=== PATIENT | male | born 1945 | race Caucasian/White ===

== ENCOUNTER 2017-11-08 07:30 | Inpatient (IN) ==
[~2017-11-08 07:30] MED LIST: ACETAMINOPHEN 500 MG TABLET PO ONE; DEXAMETHASONE 4 MG/ML INJECTION IVP ONE; FAMOTIDINE PB 20 MG/50 ML BAG IV ONE; MELOXICAM 15 MG TABLET PO ONE; METOCLOPRAMIDE 10mg/2ml INJECTION IVP ONE; ONDANSETRON 4 MG/2 ML INJECTION IVP ONE; TRANEXAMIC ACID 1,000 MG in NS 100 ML IV ONE
[2017-11-08] MEDS ORDERED: EPINEPHrine PF 0.25 MG, BUPIVACAINE 0.25% PF 30 ML, KETOROLAC INJ 60 MG in NS 30 ML OPSITE ONE (08:00)
[2017-11-08] MEDS ORDERED: LIDOCAINE 1% (10mg/ml) 2mL INJ PF SDV ID ONE (08:01)
[2017-11-08] MEDS ORDERED: CEFAZOLIN 1 G INJECTION IVP ONE (08:01)
[2017-11-08 08:15] VITALS: BMI 25.4
[2017-11-08] MEDS: LR 1,000 ML IV SCH ×2 (08:42→10:51)
[2017-11-08] MEDS: NOZIN NASAL SWAB NAS SCH ×6 (08:45→21:15)
[2017-11-08] MEDS ORDERED: SALINE FLUSH 10ml SYRINGE IV PRN (09:16)
[2017-11-08] MEDS ORDERED: SCOPOLAMINE 1mg/3 days PATCH (Eq. 1.5 Patch) TD ONE (09:45)
--- NOTE | 2017-11-08 09:45 | Anesthesia Preoperative Report ---
Anesthesia Preoperative Record - Date and Time Date: 11/08/17 Preoperative Diagnosis: RT STEFFI M16.11 Proposed Procedure: Right Total Hip NPO Since Date: 11/08/17 NPO Since Time: 00:00 Allergies/Adverse Reactions: Allergies Allergy/AdvReac Type Severity Reaction Status Date / Time No Known Drug Allergies Allergy Unknown Verified 11/08/17 08:27 atorvastatin [From Lipitor] AdvReac Intermediate severe Verified 11/08/17 08:28 muscle aches hydrocodone AdvReac Intermediate severe Verified 11/08/17 08:28 depression simvastatin AdvReac Intermediate severe Verified 11/08/17 08:28 muscle aches - Vital Signs Vital Signs: Temperature 97.9 F 11/08/17 08:13 Pulse Rate 67 11/08/17 08:34 Respiratory Rate 15 11/08/17 08:13 Blood Pressure 172/88 H 11/08/17 08:13 Pulse Oximetry 96 11/08/17 08:13 Height and Weight: Height 6 ft Weight 85.3 kg Body Mass Index 25.4 - Medications Inpatient Medications: Current Medications Lactated Ringer's (Lactated Ringers) 1,000 mls @ 50 mls/hr IV .Q20H OLGA Last Admin: 11/08/17 08:42 Dose: 50 mls/hr Sodium Chloride (Iv Flush) 10 - 80 ml IV PRN PRN PRN Reason: Flushing Home Medications: Home Medications Medication Instructions Recorded Confirmed Type Ibuprofen 200 - 600 mg PO Q6HPRN PRN 10/24/17 11/08/17 History Pravastatin [Pravachol] 1 tab PO DAILY 11/02/17 11/08/17 History Docusate Sodium [Colace Clear] 1 cap PO BID 11/08/17 11/08/17 History Ergocalciferol (Vitamin D2) 1 cap PO O 11/08/17 11/08/17 History [Vitamin D2] Is Patient on Beta Rj?: No - Medical History Respiratory: DENIES: Asthma, Bronchitis, Chronic Obstructive Pulmonary Disease (COPD), Dyspnea, Orthopnea, Pulmonary Embolism, Pneumonia, Upper Respiratory Infection, Pulmonary Edema, Sleep Apnea, Tuberculosis, Other Cardiovascular: Reports: High Cholesterol Gastrointestional: DENIES: Gastroesophageal Reflux Disease (Denies) Neuro/Musculoskeletal: Reports: Back Problems (Low back about 12 years ago) Renal/Endocrine: DENIES: Diabetes Mellitus Type 1, Diabetes Mellitus Type 2, Renal Failure, Dialysis, Thyroid Disease, Weight Loss, Weight Gain, Other Other History: Reports: Anesthesia Reactions (n/v), Cancer (prostate cancer treated surgically) - Surgical History GI Surgery/Treatments: Reports: Hernia Repair (rt ing), Colonoscopy Surgery/Treatment: REPORT: Prostatectomy (For prostate CA) Musculoskeletal Surgery/Tx: Reports: Total Hip Replacement (Lt STEFFI 2003) Anesthesia Reactions: Nausea and Vomiting Hx Family Anesthesia Reaction: No History of Motion Sickness: Yes - Social History Smoking Status: Never smoker Substance Use Type: does not use Alcohol Intake: current Alcohol Intake Frequency: a few times a week - Pertinent Findings EKG: Sinus Rhythm - Physical Exam Respiratory Exam: Present: lungs clear, bilateral breath sounds equal Cardiovascular Exam: Present: regular rate and rhythm, no murmur - Airway Assessment Mallampati Score: II TMD: 3 Fingerbreadths Neck Extension: fair Overall Assessment: no airway concerns - ASA ASA Score: 2 - Plan Anesthesia: Neuroaxial (with IV sedation) Regional/Trunk Block: Spinal - Discussion Discussion: Discussed risks/options/alternatives of anesthesia and questions answered. Patient consents. Nursing pain assessment noted. Present for Discussion: spouse Attestation Statement: Prior to the delivery of any anesthetic medication, I examined the patient, developed the plan, obtained the patient's consent and discussed the risk and benefits of the procedure with the patient/guardian. - Additional Information Seen by Anesthesia: Yes
[2017-11-08] MEDS ORDERED: VANCOMYCIN 1,000 MG INJECTION ONE (09:53)
[2017-11-08] MEDS ORDERED: MIDAZOLAM 2mg/2ml INJECTION ONE (10:01)
[2017-11-08] MEDS ORDERED: PROPOFOL 500 MG/50 ML VIAL ONE (10:01)
[2017-11-08] MEDS ORDERED: BUPIVACAINE 0.75%/DEXTROSE 8.5% SPINAL 2 ML AMPULE IJ ONE (10:07)
[2017-11-08] MEDS ORDERED: LIDOCAINE 2% (100mg/5mL) 5ml PF SDV ONE (10:07)
[2017-11-08] MEDS ORDERED: PROPOFOL 40 ML ONE (10:53)
[2017-11-08] MEDS ORDERED: VANCOMYCIN 1,000 MG INJECTION IAR ONE (10:54)
--- NOTE | 2017-11-08 11:38 | Operative Note ---
- Procedure Preoperative Diagnosis: Right hip primary degenerative joint disease Postoperative Diagnosis: Same as preoperative diagnosis. Surgeon: Kevin Mcclendon MD Environmental Services Aide: Scott Shelton Complications: None. Anesthesia: Spinal. Estimated Blood Loss: See Anesthesia Record. Fluids: Please see Anesthesia Record. Description of Procedure: Mr. Rollins and his right hip were identified and marked in the preoperative holding area. He was brought back to the operating suite and spinal anesthetic was administered. He was then placed in a lateral decubitus position with his right hip up. The right lower extremity was prepped and draped in my normal sterile fashion. Timeout was performed. The [employer] robotic arm was used to assist with the surgery. A pelvic array was placed into the iliac crest through three small incisions. A direct superior approach was utilized. An approximately 10 cm incision was made in the skin and dissection carried down to the muscle fascia which was then split in line with skin incision. The short external rotators were identified and tagged and detached. A capsulotomy was performed and the hip dislocated. A femoral neck osteotomy was performed at the pre-templated level measuring down from the femoral head 58 millimeters. The head was removed and acetabulum exposed. Labrum was removed. The acetabulum was then registered with the robot. The robotic arm was then used to ream with a the 7 reamer. The robot then was again used to place a 56 Trident cup in 40 of tilt and 22 of anteversion. A liner was then placed. The proximal femur was exposed and prepared with a cookie cutter followed by reaming and broaching to a size 8. We trialed with a standard head and this gave good stability but touch long. After thorough irrigation a final Accolade 2 size 8 stem with 132 neck was placed with a -2.5 head. Leg length and offset were checked with the robot and were good. A final - 2.5 ceramic 36 mm head was placed and the hip reduced. Betadine solution was used to irrigate throughout the case. It was followed by normal saline irrigation. Joint cocktail was injected throughout soft tissue. The capsulotomy was repaired with Ethibond. Short external rotators were also repaired with Ethibond. 1 g of vancomycin powder was placed into the wound. The muscle fascia was then repaired with #1 Vicryl. I then left my assistant manager bilingual to close the subcutaneous tissue with 2-0 Vicryl followed by running 4-0 Monocryl skin followed by Dermabond and a sterile dressing. The patient with any placed back into supine position and taken to recovery room in the care of anesthesia.
[2017-11-08] MEDS ORDERED: PHENYLEPHRINE INJ 10 MG/ML VIAL IV ONE (11:52)
--- NOTE | 2017-11-08 12:39 | XRay Report ---
Indication: postoperative image PROCEDURE: XR pelvis w/ 1 view RT hip: Encounter: Initial Comparison: October 24, 2017 Findings: Postoperative changes of right total hip replacement are seen. There is expected postoperative subcutaneous gas. No evidence of hardware failure or acute fracture. No retained radiopaque surgical instruments or sponges seen. Existing left hip prosthesis appears stable and intact. Pelvic surgical clips. Impression: New right total hip prosthesis without evidence of immediate complication. .
[2017-11-08] MEDS ORDERED: DiphenhydrAMINE 25 MG CAPSULE PO PRN (12:57)
[2017-11-08] MEDS ORDERED: LORazepam 1 MG TABLET PO PRN (12:57)
[2017-11-08] MEDS ORDERED: NOZIN NASAL SWAB NAS ONE (12:57)
[2017-11-08] MEDS ORDERED: DiphenhydrAMINE 50 MG/ML INJECTION IVP PRN (12:57)
[2017-11-08] MEDS ORDERED: ONDANSETRON 4 MG/2 ML INJECTION IVP PRN (12:57)
[2017-11-08] MEDS: NS 1,000 ML IV SCH (12:59)
--- NOTE | 2017-11-08 13:13 | Anesthesia Postoperative Note ---
- Date and Time Date: 11/08/17 Time: 13:00 - Status Patient Participated in Evaluation: Patient Participated in Person Vital Signs: Temperature 97.5 F 11/08/17 12:41 Pulse Rate 63 11/08/17 12:45 Respiratory Rate 17 11/08/17 12:45 Blood Pressure 116/74 11/08/17 12:45 Pulse Oximetry 99 11/08/17 12:45 Respiratory Function: Airway Patent Cardiovascular Function: Regular Pulse EKG: Sinus Rhythm Mental Status: Alert and Oriented Pain Intensity: 0 Hydration: IV Infusing Complications During Recover: None Apparent - Follow-Up Instructions Instructions: Per Surgeon
[2017-11-08] MEDS: ACETAMINOPHEN 325 MG TABLET PO SCH ×3 (13:31→20:12)
[2017-11-08] MEDS: IBUPROFEN 200 MG TABLET PO SCH ×3 (13:31→18:15)
[2017-11-08] MEDS ORDERED: PNEUMOCOCCAL 13 VACCINE 0.5ml INJECTION IM ONE (15:00)
[2017-11-08] MEDS: CEFAZOLIN 2 G in NS 100 ML IV SCH (17:25)
[2017-11-08] MEDS ORDERED: DEXAMETHASONE 20 MG/5 ML INJECTION IVP ONE (18:00)
[2017-11-08] MEDS: ASPIRIN *EC* 81 MG TABLET PO SCH (20:13)
[2017-11-08] MEDS: DOCUSATE SODIUM 100 MG CAPSULE PO SCH (20:13)
[2017-11-08] MEDS ORDERED: SENNOSIDES 8.6 MG TABLET PO SCH (21:00)
[2017-11-09] MEDS: IBUPROFEN 200 MG TABLET PO SCH ×2 (00:02→05:58)
[2017-11-09] MEDS: NS 1,000 ML IV SCH (01:32)
[2017-11-09] MEDS: CEFAZOLIN 2 G in NS 100 ML IV SCH (01:33)
[2017-11-09] MEDS: TRAMADOL 50 MG TABLET PO PRN ×2 (01:37→09:28)
[2017-11-09] MEDS: NOZIN NASAL SWAB NAS SCH (05:39)
[2017-11-09] MEDS ORDERED: POLYETHYL GLYCOL 3350 17gm PACKET PO SCH (09:00)
[2017-11-09] MEDS: ASPIRIN *EC* 81 MG TABLET PO SCH (09:18)
[2017-11-09] MEDS: ACETAMINOPHEN 325 MG TABLET PO SCH (09:18)
[2017-11-09] MEDS: DOCUSATE SODIUM 100 MG CAPSULE PO SCH (09:18)
--- NOTE | 2017-11-09 09:25 | Orthopedic Progress Note ---
Date: Date: 11/09/17 Time: 912 Subjective/Severity of Illness: Mr Rollins is doing great. Minimal pain that is well controlled with Tylenol and Ultram. No CP, cough or SOA. He is expecting discharge later today. Orthopedic Exam Vital signs: Temperature 96.9 F 11/09/17 07:26 Pulse Rate 86 11/09/17 07:26 Respiratory Rate 16 11/09/17 07:26 Blood Pressure 123/72 11/09/17 07:26 Pulse Oximetry 96 11/09/17 07:26 - Constitutional General Appearance: Present: alert, cooperative, no acute distress - Respiratory Exam Present: non-labored - Cardiovascular Exam Present: pedal pulses intact - Extremities Exam Present: pulses intact. Absent: calf tenderness - Dressing Dressing: dry, intact, no drainage - Integumentary Exam Present: pink, warm, dry - Neurological Exam Present: no deficits - Psychiatric Exam Present: alert, oriented, normal affect - Labs Result Diagrams: 11/09/17 04:00 11/09/17 04:00 Abnormal lab results 11/09/17 Range/Units 04:00 Chloride 110 H (98-107) MEQ/L Glucose 130 H (75-110) MG/DL Calcium 8.0 L (8.4-10.2) MG/DL H & H 11/09/17 Range/Units 04:00 Hgb 13.7 (13.5-17.5) GM/DL Orthopedic Assessment and Plan (1) Primary osteoarthritis of right hip Status: Acute Assessment and Plan: Current anti-coagulation protocol for VTE prophylaxis. SCD's. PT/OT services to improve independent function. Discharge Planning per Case Management. - Anticoagulation Therapy Anticoagulation: ASA 81 mg PO BID x6 weeks Hospital Course Summary Disclaimer: The visit summary below is not to be considered part of the above Progress Note.
[2017-11-09 11:47] VITALS: BP 140/77; PULSE 74; RESP 18; TEMP 96.7; O2SAT 99
[2017-11-09] MEDS ORDERED: SENNOSIDES 8.6 MG TABLET PO PRN (12:10)
--- NOTE | 2017-11-09 13:09 | Discharge Summary ---
Orthopedic Discharge Info Date of admission: 11/08/17 07:58 Primary care physician: Jamie Bowman Attending Physician: Mariano Mcclendon MD Consults: 11/08/17 08:01 Consult to Anesthesiology [CONS] Routine Reason For Exam: Preoperative Assessment 11/08/17 12:57 Case Management Consult [CONS] Routine Reason For Exam: Discharge Planning DME-Walker [CONS] Routine Height: 6 ft Weight: 85.3 kg Total Joint Outpatient Therapy [CONS] Routine Comment: Remove dressing in 2 weeks - Discharge Diagnosis (1) Primary osteoarthritis of right hip Status: Acute - Procedures Procedures: Rt STEFFI - Laboratory Result Diagrams: 11/09/17 04:00 11/09/17 04:00 Laboratory: Abnormal lab results 11/09/17 Range/Units 04:00 Chloride 110 H (98-107) MEQ/L Glucose 130 H (75-110) MG/DL Calcium 8.0 L (8.4-10.2) MG/DL H & H 11/09/17 Range/Units 04:00 Hgb 13.7 (13.5-17.5) GM/DL Orthopedic Discharge HPI - HPI Comments This patient was admitted for elective surgical tx of end stage degenerative joint disease that failed to respond to conservative treatment. Further details of this is found in the admission H&P. Orthopedic Hospital Course Hospital course: 11/09/17 13:05 After appropriate preoperative clearance and signing of operative consent, the patient was given IV antibiotics, according to orthopedic protocol. The patient was taken to the operating room and underwent elective right total hip arthroplasty. Following surgery, antibiotics were discontinued less than 24 hours according to joint protocol. Aspirin was initiated and SCDs added for DVT prevention. The dressing was clean, dry, and intact. Pain control was obtained via multimodal approach. Bowel motivation addressed with scheduled and PRN medications. Early mobilization was initiated through PT services. Discharge arrangements made by a collaborative effort between the patient and Case Management. Pt will take aspirin 81mg BID for 6 weeks for DVT coverage. Follow-up is scheduled in 2-3 weeks. Discharge instructions given by orthopedic providers and nursing staff at discharge. Discharge condition was good. Care extended to > 2 midnight stays?: No Discharge Plan - Med Rec/Dispo Referrals/Follow Up: Scott Shelton PA [Physician Lens Cleaner] - 11/30/17 9:30 am [facility] Instructions: [facility] Postop Instructions Additional Instructions: [facility] ON 11/11/2017 AT 2:30PM FOR PHYSICAL THERAPY [facility]IN[facility]. PLEASE COMPLETE THE PAPERWORK IN THE [facility] PRIOR TO THE APPOINTMENT. PHONE [phone] Prescriptions: New Aspirin *EC* [Ecotrin] 81 mg PO BID tablet Docusate Sodium [Colace] 100 mg PO BID capsule Milk of Magnesia [Mom] 30 ml PO DAILY udc PEG 3350 17gm PACKET [Miralax] 17 gm PO DAILY packet Acetaminophen [Tylenol] 650 mg PO QID tablet Tramadol [Ultram] 50 - 100 mg PO Q6H PRN #50 tablet PRN Reason: Pain Continue Pravastatin [Pravachol] 1 tab PO DAILY Docusate Sodium [Colace Clear] 1 cap PO BID Ibuprofen 200 - 600 mg PO Q6HPRN PRN PRN Reason: Pain Ergocalciferol (Vitamin D2) [Vitamin D2] 1 cap PO O - Disposition 01 Discharged Home, Self-Care - Dismissal Complete Discharge Instructions are:: Complete
[2017-11-09] MEDS ORDERED: PRAVASTATIN 20 MG TABLET PO SCH (21:00)
[2017-11-10] MEDS ORDERED: BISACODYL 10 MG SUPPOSITORY RECTALLY SCH (20:00)
== END 2017-11-09 14:50 | disposition home or self-care (01) | DRG 470 ==
LOC: NMC.PERIOP 07:58 → SRG 12:48
PROVIDERS: ADMIT Orthopaedic Surgery; ATTEND Orthopaedic Surgery